=== PATIENT | male | born 1955 | race Caucasian/White ===

== ENCOUNTER → 2021-04-23 | Outpatient (REF) | payer BC, OTHER ==
[2021-04-26 14:11] LABS: Lyme Disease IgG/IgM Antibodie <0.91 ISR (0.00-0.90); Lyme Disease IgM Ab Quantitati <0.80 index (0.00-0.79)
== END ==
LOC: M LAB REF 16:17
PROVIDERS: ATTEND Internal Medicine
DX: R53.83 Other fatigue (principal)

== ENCOUNTER → 2022-08-16 | Outpatient (CLI) | payer MEDICARE, BC, OTHER | LOC: M RAD 06:04 | PROVIDERS: ATTEND Physician Assistant Medical | DX: J32.9 Chronic sinusitis, unspecified (principal) ==

== ENCOUNTER → 2022-09-01 | Outpatient (CLI) | payer MEDICARE, BC, OTHER | LOC: M PLAIMG 12:51 | PROVIDERS: ATTEND Physician Assistant Medical | DX: H66.92 Otitis media, unspecified, left ear (principal) ==

== ENCOUNTER → 2023-04-03 | Outpatient (CLI) | payer MEDICARE, BC, OTHER | LOC: M CARPUL 03-03 08:53 | PROVIDERS: ATTEND Internal Medicine | DX: I71.20 Thoracic aortic aneurysm, without rupture, unspecified (principal) ==